=== PATIENT | male | born 1990 | race Caucasian/White ===

== ENCOUNTER 2017-12-27 03:17 | Inpatient (IN) | payer OTHER ==
[2017-12-27] VITALS (43 sets, daily range): BP systolic 90–124; BP diastolic 47–89
[~2017-12-27] VITALS: Ht 180.3 cm; Wt 73.2 kg
--- NOTE | ~2017-12-27 | EKG ---
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: CARLOS : 1990 Requested By: Gracy Mayers Order Number: [id number] MD: Aurelio Prather Measurements Intervals [place] Rate: 64 P: 56 IL: 202 QRS: -45 QRSD: 148 T: 53 QT: 464 QTc: 479 Interpretive Statements Sinus rhythm Borderline prolonged IL interval Probable left atrial enlargement RBBB and LAFB No previous ECG available for comparison Electronically Signed On 12-28-2017 9:09:57 CDT by Aurelio Prather [email or web address] <ELECTRONICALLY SIGNED> By: Aurelio Prather MD, [facility] 12/28/17 0909 0333 2 Aurelio Prather MD, FACC /EPI
--- NOTE | ~2017-12-27 | EKG ---
[address] [place] [address] ELECTROCARDIOGRAM REPORT Name: ZOFIA HERNANDEZ Room #: 246-P ADM IN M.R.#: [id number] Admission: 12/27/17 Attend Phys: Carrillo Hunter MD Discharge: Date of : 86 Report #: [id number] THIS REPORT FOR: //name// [facility] Test Date: 2017-12-27 Test Time: 15:00:01 Pat Name: ZOFIA HERNANDEZ Department: Room: 246 P Gender: M Boomswing Operator: MIRELLA : 1990 Requested By: Quincy Lassiter Order Number: [id number] MD: Aurelio Prather Measurements Intervals [place] Rate: 71 P: 46 NM: 158 QRS: -47 QRSD: 125 T: 14 QT: 433 QTc: 471 Interpretive Statements Sinus rhythm RBBB and LAFB ST elevation, consider Brugada syndrome No previous ECG available for comparison Electronically Signed On 12-28-2017 16:57:48 CDT by Aurelio Prather [email or web address] <ELECTRONICALLY SIGNED> By: Aurelio Prather MD, [facility] 12/28/17 1657 1500 99 Aurelio Prather MD, FACC /EPI
--- NOTE | ~2017-12-27 | CATHLAB ---
[facility] [address] [place] [address] INVASIVE PROCEDURE REPORT Name: ZOFIA HERNANDEZ Room #: 246-P [facility] IN ..#: [id number] Admission: 12/27/17 Attend Phys: Carrillo Hunter MD Discharge: Date of : 86 Date of Service: 12/30/17 1554 Report #: [id number] THIS REPORT FOR: //name// APPROVED REPORT Study performed: 12/30/2017 07:37:57 Patient Details Patient Status: In-Patient Room #: The patient is a 27 year-old male Event Personnel Quincy Lassiter Director Of Claims, Ahmet Davis RN, Dawna Reyes RTR, ANSLEY Stuart, Claude Calzada Monitor Procedures Performed Left Heart Cath w/or w/o Coronaries [id number] [facility] Indication Chest pain Procedure Narrative The Right Groin^ was infiltrated with 1% Lidocaine subcutaneous anesthesia. A PINNACLE 6FR Sheath #[id number] sheath was inserted into the RFA^. Coronary angiography was performed using coronary diagnostic catheters. The right coronary system was accessed and visualized with a jr4 catheter. The left coronary system was accessed and visualized with a JL4 catheter. The left ventricle was accessed and visualized with a PIGTAIL catheter. Left ventriculogram was performed in 30 degree projection. Closure device was deployed with a 6 Fr MYNXGRIP 6/7F #[id number]. There was no hematoma. Intraoperative Conscious Sedation Sedation start time: 8.00 Case end Time: 8.17 Fentanyl 50 mcg Versed 1.5 mg Fluoro Time: 1.34 minutes Dose: DAP 1614 cGycm2 168 mGy Contrast Type and Amount: Omnipaque 125 ml Hemodynamics The aortic pressure is 131/79 mmHg with a mean of 49 mmHg. The left ventricular pressure is 116/12 mmHg with a mean of mmHg. The left ventricular end diastolic pressure is 26 mmHg. [facility] [place] [place] [address] INVASIVE PROCEDURE REPORT Name: PEDRITOKATELYNZOFIA Room #: 246-P [facility] IN ..#: [id number] Admission: 12/27/17 Attend Phys: Carrillo Hunter MD Discharge: Date of : 86 Date of Service: 12/30/171553 Report #: [id number] Conclusion #1 normal left ventricular size and systolic function EF 60% #2 normal coronary anatomy in a right dominant system no occlusive disease Recommendations and plan patient scheduled for EP study probable pacer ICD for EP service <ELECTRONICALLY SIGNED> By: Quincy Lassiter MD, [facility] 12/30/17 1554 155 1554 Quincy Lassiter MD, FACC /INF
--- NOTE | ~2017-12-27 | EKG ---
[address] [place] [place] [address] ELECTROCARDIOGRAM REPORT Name: ZOFIA HERNANDEZ Room #: 246-P ADM IN M.R.#: [id number] Admission: 12/27/17 Attend Phys: Carrillo Hunter MD Discharge: Date of : 86 Report #: [id number] THIS REPORT FOR: //name// [facility] Test Date: 2017-12-28 Test Time: 07:42:13 Pat Name: ZOFIA HERNANDEZ Department: Room: 246 P Gender: M Stock Driver: MARIA VICTORIA : 1990 Requested By: Quincy Lassiter Order Number: [id number] MD: Aurelio Prather Measurements Intervals [place] Rate: 74 P: 48 MT: 159 QRS: -57 QRSD: 129 T: 19 QT: 421 QTc: 467 Interpretive Statements Sinus rhythm Septal ST elevation, consider Brugada syndrome No previous ECG available for comparison Electronically Signed On 12-28-2017 17:00:21 CDT by Aurelio Prather [email or web address] <ELECTRONICALLY SIGNED> By: Aurelio Prather MD, [facility] 12/28/17 1700 0742 0742 Aurelio Prather MD, FACC /EPI
--- NOTE | ~2017-12-27 | HC ---
[facility] [place] [address] CONSULTATION Name: ZOFIA HERNANDEZ Room #: 246-P [facility] IN .R.#: [id number] Admission: 12/27/17 Attend Phys: Carrillo Hunter MD Discharge: Date of : 86 Report #: [id number] THIS REPORT FOR: //name// CC: Carrillo Hunter [facility] physician/PCP DATE OF SERVICE: 12/27/2017 ELECTROPHYSIOLOGY CONSULTATION: REASON FOR CONSULTATION: Brugada syndrome with cardiac arrest. HISTORY OF PRESENT ILLNESS: The patient is a 27-year-old male who presented after a cardiac arrest. The patient does not have much in terms of cardiac history except back in June, he did present to the Emergency Room at [facility] with some complaints of some palpitations and some shortness of breath, but no symptoms of syncope or presyncope. When he was seen in the ER, he was noted to have an abnormal EKG and was admitted. I do not have the outside records, but at that time, it does not sound like a defibrillator was considered at that point due to this seeming to be an asymptomatic case of Brugada is my assumption. The patient did well until the day he presented here to the hospital. 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 It sounds like he may have been drinking some alcohol. He had positive alcohol in his system upon admission. He was also positive for some marijuana. He got up to go to his bedroom and apparently he passed out. His friends heard him fall down and his friend immediately started CPR. EMS came to his apartment and he was defibrillated out of ventricular fibrillation. He was brought here intubated and today was extubated. Today, he denies any chest pain or shortness of breath. He denies PND or orthopnea. He is somewhat still sedated. Therefore, 12-point review of systems could not be entirely acquired today due to his altered mental status. PAST MEDICAL HISTORY: None. 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 He denies tobacco abuse and drinks on occasion and smokes marijuana. FAMILY HISTORY: There is no family history of sudden cardiac and his mother and father are otherwise healthy, but have never had EKGs. MEDICATIONS: None. ALLERGIES: None. PHYSICAL EXAMINATION: VITAL SIGNS: Temperature is afebrile, pulse 72, respiratory rate 16, blood pressure 120/73, sats 100%. [address] [address] CONSULTATION Name: ZOFIA HERNANDEZ Room #: 246-P [facility] IN .R.#: [id number] Admission: 12/27/17 Attend Phys: Carrillo Hunter MD Discharge: Date of : 86 Report #: [id number] GENERAL: No acute distress. HEENT: Oropharynx is clear. HEART: Regular rate and rhythm. LUNGS: Clear to auscultation bilaterally. ABDOMEN: Soft, nontender, nondistended. EXTREMITIES: No clubbing, cyanosis, edema. NEUROLOGIC: Cranial nerves 2-12 are intact. LABORATORY DATA: White count 10.7, hemoglobin 13, platelets 170. Coags: INR is 1. Chemistry: Sodium 141, potassium 3.1, BUN 11, creatinine 0.9, AST 82, ALT 106, alkaline phosphatase 59. ProBNP was 173. Troponin was initially 0.7 and then increased to 13.3. His telemetry shows normal sinus rhythm with no ventricular ectopy. His 12-lead EKGs here show a type 1 Brugada pattern. ASSESSMENT AND PLAN: 1. Brugada syndrome. 2. Cardiac arrest. 3. Elevated troponin. In summary, the patient is a 27-year-old with a history of Brugada syndrome and cardiac arrest. To further evaluate this, he underwent an echocardiogram showing normal LV size and function, EF of 55-60%. He will undergo a diagnostic cardiac catheterization tomorrow given his elevated troponin, although this is likely due to his arrest. We will then proceed with implantation of an ICD for secondary prevention of sudden cardiac . We have discussed the details of the procedure including the risks, which include but not limited to bleeding, infection, vascular damage, cardiac perforation and pneumothorax. He understands these risks and is willing to proceed. We will likely proceed with this implant on . By: 1722 0440 Jose Smith MD /nt
--- NOTE | ~2017-12-27 | 2DMMODE ---
[facility] [address] [place] [address] 2 D/M-MODE ECHOCARDIOGRAM Name: ZOFIA HERNANDEZ Room #: 246-P [facility] IN ..#: [id number] Admission: 12/27/17 Attend Phys: Carrillo Hunter MD Discharge: Date of : 86 Date of Service: 12/28/17 1116 Report #: [id number] THIS REPORT FOR: //name// APPROVED REPORT Study performed: 12/28/2017 08:02:09 EXAM: Comprehensive 2D, Doppler, and color-flow Echocardiogram Patient Location: ICU Room #: [facility] Status: routine BSA: 1.76 HR: 72 bpm BP: 120/73 mmHg Other Information Study Quality: Adequate Technically limited study due to inability to position patient. Indications Cardiac arrest, Brugada syndrome? 2D Dimensions RVDd: 29.79 mm IVSd: 9.58 (7-11mm) LVOT Diam: 20.68 (18-24mm) LVDd: 45.12 mm PWd: 11.77 (7-11mm) Ascending Ao: 26.22 (22-36mm) LVDs: 32.09 (25-40mm) Aortic Root: 33.20 mm IVC: 15.00 mm Volumes Left Atrial Volume (Systole) Single Plane 4CH: 22.89 mL Single Plane 2CH: 27.71 mL LA ESV Index: 18.00 mL/m2 Aortic Valve AoV Peak Temo.: 1.45 m/s AO Peak Gr.: 8.42 mmHg LVOT Max P.50 mmHg LVOT Max V: 1.17 m/s JAMIE Vmax: 2.71 cm2 Mitral Valve E/A Ratio: 1.4 MV Decel. Time: 165.75 ms [facility] [address] [place] [address] 2 D/M-MODE ECHOCARDIOGRAM Name: ZOFIA HERNANDEZ Room #: 246-P [facility] IN [facility]#: [id number] Admission: 12/27/17 Attend Phys: Carrillo Hunter MD Discharge: Date of : 86 Date of Service: 12/28/17 1116 Report #: [id number] MV E Max Temo.: 0.86 m/s MV A Temo.: 0.61 m/s MV PHT: 48.07 ms IVRT: 76.12 ms Pulmonary Valve PV Peak Temo.: 1.42 m/s PV Peak Gr.: 8.10 mmHg Pulmonary Vein P Vein S: 0.53 m/s P Vein A: 0.32 m/s P Vein D: 0.46 m/s P Vein A Dur.: 93.4 msec P Vein S/D Ratio: 1.15 Left Ventricle The left ventricle is normal size. There is normal LV segmental wall motion. There is normal left ventricular wall thickness. The left ventricular systolic function is normal. The left ventricular ejection fraction is within the normal range. LVEF is 55-60%. The left ventricular diastolic function is normal. Right Ventricle The right ventricle is normal size. The right ventricular systolic function is normal. Atria The left atrium size is normal. The right atrium size is normal. Aortic Valve The aortic valve is normal in structure. No aortic regurgitation is present. There is no aortic valvular stenosis. Mitral Valve The mitral valve is normal in structure. There is no mitral valve regurgitation noted. No evidence of mitral valve stenosis. Tricuspid Valve The tricuspid valve is normal in structure. There is no tricuspid valve regurgitation noted. Unable to assess PA pressure. Pulmonic Valve The pulmonary valve is normal in structure. Mild pulmonic regurgitation. Great Vessels The aortic root is normal in size. IVC is normal in [address] [place] [address] 2 D/M-MODE ECHOCARDIOGRAM Name: MARYZOFIA Loaiza Room #: 246-P [facility] IN [facility]#: [id number] Admission: 12/27/17 Attend Phys: Carrillo Hunter MD Discharge: Date of : 86 Date of Service: 12/28/17 1116 Report #: [id number] size. Pericardium There is no pericardial effusion. <Conclusion> The left ventricular systolic function is normal. There is normal LV segmental wall motion. LVEF is 55-60%. Normal diastolic function The aortic valve is normal in structure. No aortic regurgitation or stenosis The mitral valve is normal in structure. No mitral valve regurgitation. There is no pericardial effusion. <ELECTRONICALLY SIGNED> By: Aurelio Prather MD, FACC 12/28/17 111 15 15 Aurelio Prather MD, FACC /INF
--- NOTE | ~2017-12-27 | EKG ---
[address] [address] ELECTROCARDIOGRAM REPORT Name: ZOFIA HERNANDEZ Room #: 246-P ADM IN M.R.#: [id number] Admission: 12/27/17 Attend Phys: Carrillo Hunter MD Discharge: Date of : 86 Report #: [id number] THIS REPORT FOR: //name// [facility] Test Date: 2017-12-31 Test Time: 08:06:29 Pat Name: ZOFIA HERNANDEZ Department: Room: 246 P Gender: M Sap Basis: MARK : 1990 Requested By: Jose Smith Order Number: [id number] MD: Aurelio Prather Measurements Intervals [place] Rate: 74 P: 54 VT: 200 QRS: -27 QRSD: 133 T: 2 QT: 422 QTc: 469 Interpretive Statements Sinus rhythm Right bundle branch block Compared to ECG 12/28/2017 07:42:13 Right bundle-branch block now present ST (T wave) deviation no longer present Electronically Signed On 12-31-2017 8:56:50 CDT by Aurelio Prather [email or web address] <ELECTRONICALLY SIGNED> By: Aurelio Prather MD, [facility] 12/31/17 0856 5 5 Aurelio Prather MD, [facility] /EPI
[2017-12-27 04:04] LABS: BE(vivo) -12.1 mmol/L (-2 to +3); HCO3 15.4 mmol/L (22.0-26.0); PCO2 40.6 mmHg (35.0-45.0); PO2 227.6 mmHg (80.0-100.0); pH 7.198 (7.360-7.450); sO2 99.3 % (92.0-98.0)
[2017-12-27 04:13] LABS: ABSOLUTE NEUTROPHILS 9.4 thou/uL (1.4-8.2); EOSINOPHILS 3.5 % (0.0-3.0); HEMATOCRIT 46.7 % (42.0-52.0); HEMOGLOBIN 15.4 gm/dL (14.0-18.0); LYMPHOCYTES 30.9 % (24.0-44.0); MCH 29.5 pg (26.0-34.0); MCV 89.4 fL (80.0-100.0); MONOCYTES 4.3 % (1.0-8.0); PLATELET COUNT 238 thou/uL (150-400); POLYS 60.3 % (36.0-66.0); RBC 5.22 mil/uL (4.50-6.00); RDW 12.9 % (10.5-14.5); WBC 15.7 thou/uL (4.0-11.0)
[2017-12-27 04:20] LABS: ANION GAP 18 mmol/L (7-16); BUN 17 mg/dL (7-18); CALCIUM 8.7 mg/dL (8.5-10.1); CHLORIDE 103 mmol/L (98-107); CO2 19 mmol/L (21-32); CREATININE 1.4 mg/dL (0.7-1.3); GLUCOSE 182 mg/dL (74-106); POTASSIUM 3.2 mmol/L (3.5-5.1); SODIUM 140 mmol/L (136-145)
[2017-12-27 04:23] LABS: AMP/METHAMP Negative (Negative); BARBITURATES Negative (Negative); BENZODIAZEPINES Negative (Negative); COCAINE Negative (Negative); METHADONE Negative (Negative); OPIATES Negative (Negative); PCP Negative (Negative)
[2017-12-27 04:24] LABS: APTT 29.9 Seconds (24.5-32.8); PROTIME 10.2 Seconds (9.3-11.4)
[2017-12-27 04:30] LABS: ALBUMIN 3.9 g/dL (3.4-5.0); DIRECT BILIRUBIN < 0.1 mg/dL (<0.1-0.3); SGOT 183 U/L (15-37); SGPT 203 U/L (30-65); TOTAL BILIRUBIN 0.5 mg/dL (<0.1-1.0); TOTAL PROTEIN 7.6 g/dL (6.4-8.2); TROPONIN-I 0.27 ng/mL (<0.06)
[2017-12-27 07:32] LABS: BE(vivo) -4.5 mmol/L (-2 to +3); HCO3 20.2 mmol/L (22.0-26.0); PCO2 36.2 mmHg (35.0-45.0); PO2 357.6 mmHg (80.0-100.0); pH 7.364 (7.360-7.450); sO2 99.8 % (92.0-98.0)
[2017-12-27 09:39] LABS: HEMATOCRIT 44.2 % (42.0-52.0); HEMOGLOBIN 14.8 gm/dL (14.0-18.0); MCH 29.7 pg (26.0-34.0); MCHC 33.5 g/dL (28.0-37.0); MCV 88.6 fL (80.0-100.0); PLATELET COUNT 187 thou/uL (150-400); RBC 4.99 mil/uL (4.50-6.00); RDW 12.9 % (10.5-14.5); WBC 22.2 thou/uL (4.0-11.0)
[2017-12-27 09:53] LABS: FIBRINOGEN 257.4 mg/dL (210-360); PROTIME 10.4 Seconds (9.3-11.4)
[2017-12-27 10:01] LABS: D-DIMER 15.06 ug/mLFEU (0.19-0.50)
[2017-12-27 10:11] LABS: CREATININE 1.1 mg/dL (0.7-1.3); PHOSPHORUS 3.8 mg/dL (2.5-4.9); POTASSIUM 3.5 mmol/L (3.5-5.1)
[2017-12-27 10:15] LABS: TROPONIN-I 13.33 ng/mL (<0.06)
[2017-12-27 10:27] LABS: ABSOLUTE NEUTROPHILS 17.3 thou/uL (1.4-8.2); LARGE PLATELETS SEVERAL
[2017-12-28] VITALS (24 sets, daily range): BP systolic 107–130; BP diastolic 60–77
[2017-12-28 05:43] LABS: BE(vivo) -2.4 mmol/L (-2 to +3); HCO3 21.6 mmol/L (22.0-26.0); PCO2 34.9 mmHg (35.0-45.0); PO2 171.4 mmHg (80.0-100.0); pH 7.409 (7.360-7.450); sO2 99.2 % (92.0-98.0)
[2017-12-28 06:58] LABS: HEMATOCRIT 39.7 % (42.0-52.0); HEMOGLOBIN 13.1 gm/dL (14.0-18.0); MCH 29.2 pg (26.0-34.0); MCV 88.6 fL (80.0-100.0); RBC 4.48 mil/uL (4.50-6.00); WBC 10.7 thou/uL (4.0-11.0)
[2017-12-28 07:12] LABS: ALBUMIN 3.2 g/dL (3.4-5.0); CALCIUM 8.4 mg/dL (8.5-10.1); CREATININE 0.9 mg/dL (0.7-1.3); POTASSIUM 3.3 mmol/L (3.5-5.1); TOTAL BILIRUBIN 0.9 mg/dL (<0.1-1.0); TOTAL PROTEIN 6.3 g/dL (6.4-8.2)
[2017-12-28 11:40] LABS: BE(vivo) -6.2 mmol/L (-2 to +3); HCO3 18.5 mmol/L (22.0-26.0); PCO2 34.1 mmHg (35.0-45.0); PO2 127.6 mmHg (80.0-100.0); pH 7.352 (7.360-7.450); sO2 98.4 % (92.0-98.0)
[2017-12-29] VITALS (25 sets, daily range): BP systolic 99–127; BP diastolic 36–95
[2017-12-29 07:58] LABS: CALCIUM 8.5 mg/dL (8.5-10.1); CREATININE 0.8 mg/dL (0.7-1.3); POTASSIUM 3.8 mmol/L (3.5-5.1)
[2017-12-30] VITALS (32 sets, daily range): BP systolic 96–129; BP diastolic 50–88
[2017-12-30 04:37] LABS: ALBUMIN 2.8 g/dL (3.4-5.0); CALCIUM 8.2 mg/dL (8.5-10.1); CREATININE 0.7 mg/dL (0.7-1.3); DIRECT BILIRUBIN 0.2 mg/dL (<0.1-0.3); POTASSIUM 3.5 mmol/L (3.5-5.1); TOTAL BILIRUBIN 0.8 mg/dL (<0.1-1.0)
[2017-12-30 04:50] LABS: HEMATOCRIT 35.1 % (42.0-52.0); HEMOGLOBIN 12.1 gm/dL (14.0-18.0); MCH 30.2 pg (26.0-34.0); MCHC 34.6 g/dL (28.0-37.0); MCV 87.3 fL (80.0-100.0); RBC 4.02 mil/uL (4.50-6.00); RDW 12.4 % (10.5-14.5); WBC 8.7 thou/uL (4.0-11.0)
[2017-12-31] VITALS (21 sets, daily range): BP systolic 98–131; BP diastolic 48–87
[2018-01-01 04:20] VITALS: BP 124/81
[2018-01-01 07:37] VITALS: BP 127/94
[2018-01-01 10:52] VITALS: BP 127/94
[2018-01-01 11:14] VITALS: BP 127/94
[2018-01-01 11:37] VITALS: BP 127/94
== END 2018-01-01 11:30 | disposition home or self-care (01) | DRG 224 ==
LOC: ER 03:17 → ICU 07:28 → 2N 12-31 22:52 → ENTRNSPT 01-01 11:13 → EDTRNSPTSTS 01-01 11:14 → 2N 01-01 11:30
PROVIDERS: Emergency Medicine; Hospitalist; Nurse Practitioner Adult Health; Nurse Practitioner Family; Pediatrics
DX: I44.2 Atrioventricular block, complete (principal); I46.9 Cardiac arrest, cause unspecified; J96.01 Acute respiratory failure with hypoxia; N17.9 Acute kidney failure, unspecified; E87.2 Acidosis; I49.8 Other specified cardiac arrhythmias; F12.90 Cannabis use, unspecified, uncomplicated; N18.9 Chronic kidney disease, unspecified; I95.9 Hypotension, unspecified; D72.829 Elevated white blood cell count, unspecified; R74.0 Nonspecific elevation of levels of transaminase and lactic acid dehydrogenase [LDH]; E87.6 Hypokalemia; Z28.21 Immunization not carried out because of patient refusal